=== PATIENT | male | born 1970 | race Hispanic/Latino ===

== ENCOUNTER 2019-05-23 10:34 | Emergency (ER) | payer SELFPAY | END 2019-05-23 11:22 | disposition home or self-care (01) | LOC: EDH 10:34 | DX: R50.9 Fever, unspecified (principal); I10 Essential (primary) hypertension; Z98.2 Presence of cerebrospinal fluid drainage device; Z87.891 Personal history of nicotine dependence | CPT/HCPCS: 99281 ==

== ENCOUNTER → 2020-11-16 | Outpatient (CLI) | payer MEDICARE | END | disposition home or self-care (01) | LOC: SHCH 14:00 | PROVIDERS: ATTEND Internal Medicine | DX: R06.02 Shortness of breath (principal) | CPT/HCPCS: 93306 ==

== ENCOUNTER 2021-12-27 12:38 | Inpatient (IN) | payer MEDICARE ==
[~2021-12-27] VITALS: Ht 165.1 cm; Wt 109.9 kg
[2021-12-27 15:16] LABS: ABG BASE EXCESS -5.2 mmol/L (-2.0-3.0); ABG OXYGEN SATURATION 89.5 % (95.0-99.0); ABG PCO2 30 mmHg (35-48)
[2021-12-27] MEDS ORDERED: DEXAMETHASONE SOD PHOSPHATE 4 MG/ML 1ML VIAL IVP ONE (15:30)
[2021-12-27] MEDS ORDERED: AZITHROMYCIN 250 MG TABLET PO ONE (15:30)
[2021-12-27] MEDS ORDERED: CEFTRIAXONE 1G VIAL IVP ONE (15:30)
[2021-12-27 15:38] LABS: BASOPHILS % (AUTO) 0.5 % (0.0-5.0); EOSINOPHILS % (AUTO) 0.4 % (0.0-8.0); HEMATOCRIT 51.4 % (42-54); MEAN CORPUSCULAR HEMOGLOBIN 30.9 pg (27.0-33.0); MEAN CORPUSCULAR HGB CONC 33.1 g/dL (32.0-36.0); MEAN CORPUSCULAR VOLUME 93.5 fL (79-99); MONOCYTES % (AUTO) 11.3 % (3.0-13.0); NEUTROPHILS % (AUTO) 75.2 % (40.0-77.0); NUCLEATED RED BLOOD CELLS 0.4 % (0.0-0.19); PLATELET COUNT (AUTO) 150 K/uL (130-400); RED CELL DISTRIBUTION WIDTH 13.6 % (11.0-15.5); WHITE BLOOD COUNT (AUTO) 7.4 K/uL (4.8-10.8)
[2021-12-27 15:51] LABS: CREATININE 0.8 mg/dL (0.5-1.5); POTASSIUM 3.8 mmol/L (3.5-5.1)
[2021-12-27 16:03] LABS: ALBUMIN 3.4 g/dL (3.5-5.0); BILIRUBIN,TOTAL 0.2 mg/dL (0.2-1.0); CRP QUANTITATIVE 27.8 mg/L (0.00-9.0); TOTAL PROTEIN, SERUM 8.5 g/dL (6.0-8.3)
[2021-12-27 16:47] LABS: ERYTHROCYTE SEDIMENTATION RATE 2 MM/HR (0-20)
[2021-12-27] MEDS ORDERED: LOSA25TA41 PO (16:51)
[2021-12-27] MEDS ORDERED: QUET50TA24 PO (16:51)
[2021-12-27] MEDS ORDERED: TRAZ-185 PO (16:51)
[2021-12-27] MEDS ORDERED: FURO20TA4 PO (16:51)
[2021-12-27] MEDS ORDERED: SENN8.6T20 PO (16:51)
[2021-12-27] MEDS ORDERED: DIVA-78 PO ×2 (16:51)
[2021-12-27] MEDS ORDERED: LEVE750T10 PO (16:51)
[2021-12-27] MEDS ORDERED: MULT-1192 PO (16:51)
[2021-12-27] MEDS ORDERED: 0.9%NACL 1000ML 1,000 ML IV SCH (17:30)
[2021-12-27] MEDS ORDERED: PHARMACY COMMUNICATION MISC SCH (18:00)
[2021-12-27] MEDS: DOXYCYCLINE 100MG+NS 250ML IV SCH (18:38)
[2021-12-27] MEDS ORDERED: IOHEXOL 350 MG/ML 100ML INFUS..BTL IV ONE (20:31)
[2021-12-27] MEDS ORDERED: QUETIAPINE FUMARATE 100 MG TAB ONE (21:03)
[2021-12-27] MEDS ORDERED: LEVETIRACETAM 500 MG TABLET PO ONE (21:04)
[2021-12-27] MEDS: QUETIAPINE FUMARATE 25 MG TAB PO SCH (21:13)
[2021-12-27] MEDS: SENNOSIDES 8.6 MG TABLET PO SCH (21:14)
[2021-12-27] MEDS: DIVALPROEX SODIUM 250 MG TABLET.DR PO SCH (21:14)
[2021-12-27] MEDS: LEVETIRACETAM 250 MG TABLET PO SCH (21:14)
[2021-12-27 21:22] LABS: CREATININE 0.7 mg/dL (0.5-1.5); POTASSIUM 4.4 mmol/L (3.5-5.1)
[2021-12-28] VITALS (7 sets, daily range): BP systolic 90–118; BP diastolic 60–93
[2021-12-28] MEDS: DOXYCYCLINE 100MG+NS 250ML IV SCH ×2 (05:17→18:41)
[2021-12-28 05:24] LABS: BASOPHILS % (AUTO) 0.1 % (0.0-5.0); HEMATOCRIT 44.7 % (42-54); LYMPHOCYTES % (AUTO) 18.6 % (21.0-51.0); MEAN CORPUSCULAR HEMOGLOBIN 31.2 pg (27.0-33.0); MEAN CORPUSCULAR HGB CONC 33.6 g/dL (32.0-36.0); MEAN CORPUSCULAR VOLUME 92.9 fL (79-99); MONOCYTES % (AUTO) 11.5 % (3.0-13.0); PLATELET COUNT (AUTO) 141 K/uL (130-400); RED BLOOD CELL COUNT(AUTO) 4.81 MIL/uL (4.50-6.20); RED CELL DISTRIBUTION WIDTH 13.5 % (11.0-15.5); WHITE BLOOD COUNT (AUTO) 6.7 K/uL (4.8-10.8)
[2021-12-28 06:05] LABS: ALBUMIN 2.7 g/dL (3.5-5.0); BILIRUBIN,DIRECT 0.1 mg/dL (0.0-0.3); BILIRUBIN,TOTAL 0.4 mg/dL (0.2-1.0); CREATININE 0.9 mg/dL (0.5-1.5); CRP QUANTITATIVE 25.6 mg/L (0.00-9.0); POTASSIUM 4.9 mmol/L (3.5-5.1); THYROID STIMULATING HORMONE 0.64 uIU/mL (0.36-3.74); TOTAL PROTEIN, SERUM 7.1 g/dL (6.0-8.3)
[2021-12-28 09:49] LABS: MYOGLOBIN 310 ng/mL (10-92)
[2021-12-28 09:51] LABS: CREATINE KINASE, TOTAL 2101 U/L (21-232)
[2021-12-28] MEDS: LEVETIRACETAM 250 MG TABLET PO SCH ×2 (10:41→20:25)
[2021-12-28] MEDS: DEXAMETHASONE SOD PHOSPHATE 4 MG/ML 1ML VIAL IV SCH (10:41)
[2021-12-28] MEDS: ENOXAPARIN SODIUM 40 MG/0.4 ML SYRINGE SQ SCH (10:41)
[2021-12-28] MEDS: MULTIVITAMIN TABLET PO SCH (10:41)
[2021-12-28] MEDS: CEFTRIAXONE 2GM VIAL IVP SCH (10:41)
[2021-12-28] MEDS: DIVALPROEX SODIUM 250 MG TABLET.DR PO SCH ×2 (10:41→20:25)
[2021-12-28] MEDS: SENNOSIDES 8.6 MG TABLET PO SCH ×2 (10:41→20:25)
[2021-12-28 14:25] LABS: MYOGLOBIN 245 ng/mL (10-92)
[2021-12-28 14:31] LABS: CREATINE KINASE, TOTAL 2166 U/L (21-232)
[2021-12-28] MEDS ORDERED: 0.9% NACL 250ML 250 ML ONE (18:40)
[2021-12-28 19:16] LABS: APPEARANCE,URINE Clear (CLEAR); BILIRUBIN,URINE Negative (NEGATIVE); COLOR,URINE Yellow (YELLOW); GLUCOSE, URINE (UA) Negative (NEGATIVE); KETONES,URINE Negative (NEGATIVE); LEUKOCYTE ESTERASE ,URINE Negative (NEGATIVE); NITRATE,URINE Negative (NEGATIVE); OCCULT BLOOD,URINE Negative (NEGATIVE); PROTEIN,URINE Negative (NEGATIVE); UROBILINOGEN,URINE 0.2 mg/dL (0.2-1.0)
[2021-12-28 19:20] LABS: CREATININE,URINE RANDOM 96 mg/dL (30-135); SODIUM,URINE RANDOM 16 mmol/l (40-220)
[2021-12-28] MEDS: QUETIAPINE FUMARATE 25 MG TAB PO SCH (20:25)
[2021-12-28 21:06] LABS: MYOGLOBIN 204 ng/mL (10-92)
[2021-12-28 21:10] LABS: CREATINE KINASE, TOTAL 2262 U/L (21-232)
[2021-12-29 04:29] VITALS: BP 99/73
[2021-12-29 04:44] LABS: BASOPHILS % (AUTO) 0.1 % (0.0-5.0); HEMATOCRIT 41.4 % (42-54); LYMPHOCYTES % (AUTO) 21.3 % (21.0-51.0); MEAN CORPUSCULAR HEMOGLOBIN 30.9 pg (27.0-33.0); MEAN CORPUSCULAR HGB CONC 33.1 g/dL (32.0-36.0); MEAN CORPUSCULAR VOLUME 93.2 fL (79-99); MONOCYTES % (AUTO) 11.1 % (3.0-13.0); PLATELET COUNT (AUTO) 133 K/uL (130-400); RED BLOOD CELL COUNT(AUTO) 4.44 MIL/uL (4.50-6.20); RED CELL DISTRIBUTION WIDTH 13.8 % (11.0-15.5); WHITE BLOOD COUNT (AUTO) 7.4 K/uL (4.8-10.8)
[2021-12-29 04:57] LABS: CREATININE 0.9 mg/dL (0.5-1.5); CRP QUANTITATIVE 6.6 mg/L (0.00-9.0); POTASSIUM 4.1 mmol/L (3.5-5.1)
[2021-12-29] MEDS: DOXYCYCLINE 100MG+NS 250ML IV SCH ×2 (05:45→17:38)
[2021-12-29] MEDS ORDERED: 0.9% NACL 250ML 250 ML ONE (05:54)
[2021-12-29 07:38] VITALS: BP 108/83
[2021-12-29] MEDS: DEXAMETHASONE SOD PHOSPHATE 4 MG/ML 1ML VIAL IV SCH (07:58)
[2021-12-29] MEDS: CEFTRIAXONE 2GM VIAL IVP SCH (07:58)
[2021-12-29] MEDS: PHARMACY COMMUNICATION MISC SCH ×2 (08:03→21:00)
[2021-12-29] MEDS: MULTIVITAMIN TABLET PO SCH (08:06)
[2021-12-29] MEDS: SENNOSIDES 8.6 MG TABLET PO SCH ×2 (08:06→20:48)
[2021-12-29 12:00] VITALS: BP 115/84
[2021-12-29] MEDS: ENOXAPARIN SODIUM 40 MG/0.4 ML SYRINGE SQ SCH (12:05)
[2021-12-29] MEDS: LEVETIRACETAM 250 MG TABLET PO SCH ×2 (12:05→20:48)
[2021-12-29] MEDS: DIVALPROEX SODIUM 250 MG TABLET.DR PO SCH ×2 (12:05→20:48)
[2021-12-29 16:00] VITALS: BP 114/76
[2021-12-29] MEDS: LACTATED RINGERS 1000ML 1,000 ML IV SCH (18:29)
[2021-12-29 19:00] VITALS: BP 119/76
[2021-12-29] MEDS: QUETIAPINE FUMARATE 25 MG TAB PO SCH (20:48)
[2021-12-30] MEDS: LACTATED RINGERS 1000ML 1,000 ML IV SCH (01:00)
[2021-12-30 04:00] VITALS: BP 128/88
[2021-12-30 04:12] LABS: BASOPHILS % (AUTO) 0.1 % (0.0-5.0); HEMATOCRIT 41.8 % (42-54); LYMPHOCYTES % (AUTO) 20.8 % (21.0-51.0); MEAN CORPUSCULAR HEMOGLOBIN 31.5 pg (27.0-33.0); MEAN CORPUSCULAR HGB CONC 33.5 g/dL (32.0-36.0); MEAN CORPUSCULAR VOLUME 94.1 fL (79-99); MONOCYTES % (AUTO) 10.4 % (3.0-13.0); NEUTROPHILS % (AUTO) 68.3 % (40.0-77.0); PLATELET COUNT (AUTO) 141 K/uL (130-400); RED BLOOD CELL COUNT(AUTO) 4.44 MIL/uL (4.50-6.20); RED CELL DISTRIBUTION WIDTH 13.9 % (11.0-15.5); WHITE BLOOD COUNT (AUTO) 6.8 K/uL (4.8-10.8)
[2021-12-30 04:42] LABS: CREATININE 0.7 mg/dL (0.5-1.5); POTASSIUM 3.6 mmol/L (3.5-5.1)
[2021-12-30] MEDS ORDERED: 0.9% NACL 250ML 250 ML ONE (06:01)
[2021-12-30] MEDS: DOXYCYCLINE 100MG+NS 250ML IV SCH (06:27)
[2021-12-30] MEDS ORDERED: CEFU500T67 PO (07:14)
[2021-12-30] MEDS ORDERED: DEXA6TAB PO (07:14)
[2021-12-30] MEDS ORDERED: FUROSEMIDE 20MG VIAL IV SCH (07:30)
[2021-12-30 08:00] VITALS: BP 134/86
[2021-12-30] MEDS: ENOXAPARIN SODIUM 40 MG/0.4 ML SYRINGE SQ SCH (08:25)
[2021-12-30] MEDS: SENNOSIDES 8.6 MG TABLET PO SCH (08:26)
[2021-12-30] MEDS: MULTIVITAMIN TABLET PO SCH (08:26)
[2021-12-30] MEDS: LEVETIRACETAM 250 MG TABLET PO SCH (09:32)
[2021-12-30] MEDS: DIVALPROEX SODIUM 250 MG TABLET.DR PO SCH (09:32)
[2021-12-30 11:56] VITALS: BP 135/85
[2021-12-30 16:34] VITALS: BP 140/91
[2021-12-30] MEDS ORDERED: METO-391 PO (16:46)
[2021-12-30] MEDS ORDERED: FURO40TA5 PO (16:46)
[2021-12-30] MEDS ORDERED: METOPROLOL TARTRATE 25 MG TAB PO ONE (17:00)
[2021-12-30] MEDS ORDERED: FUROSEMIDE 20MG VIAL IV ONE (17:00)
[2021-12-30] MEDS ORDERED: FUROSEMIDE 40 MG TABLET PO ONE (18:25)
== END 2021-12-30 16:30 | disposition home or self-care (01) | DRG 177 ==
LOC: EDH 12:38 → EDHIP 17:33 → 2AH 23:47
PROVIDERS: ADMIT Internal Medicine; ATTEND Internal Medicine
DX: U07.1 COVID-19 (principal); J12.82 Pneumonia due to coronavirus disease 2019; J96.01 Acute respiratory failure with hypoxia; E87.1 Hypo-osmolality and hyponatremia; G82.20 Paraplegia, unspecified; M62.82 Rhabdomyolysis; Z68.41 Body mass index [BMI] 40.0-44.9, adult; D68.69 Other thrombophilia; E66.9 Obesity, unspecified; E86.0 Dehydration; G40.909 Epilepsy, unspecified, not intractable, without status epilepticus; I10 Essential (primary) hypertension; K59.00 Constipation, unspecified; K75.9 Inflammatory liver disease, unspecified; K76.0 Fatty (change of) liver, not elsewhere classified; Z79.899 Other long term (current) drug therapy; Z86.73 Personal history of transient ischemic attack (TIA), and cerebral infarction without residual deficits; K80.20 Calculus of gallbladder without cholecystitis without obstruction
CPT/HCPCS: 36415; 36600; 70450; 71045; 71275; 74181; 76705; 80048; 80053; 80076; 80164; 81003; 82010; 82435; 82533; 82550; 82570; 82728; 82803; 82947; 82948; 83605; 83615; 83874; 84132; 84145; 84295; 84300; 84443; 84484; 85018; 85025; 85378; 85651; 86140; 87040; 87635; 87804; 93005; 93970; 94760; 97039; 99291; C9803; G0378; J0696; J1100; J1650; J1940; J3490; J7050; J7120; Q9967

== ENCOUNTER 2022-01-10 15:06 | Inpatient (IN) | payer MEDICARE ==
[~2022-01-10] VITALS: Ht 170.2 cm; Wt 105.6 kg
[~2022-01-10 15:06] MED LIST: CEFU500T67 PO; DEXA6TAB PO; DIVA-78 PO; FURO40TA5 PO; LEVE750T10 PO; METO-391 PO; MULT-1192 PO; QUET50TA24 PO; SENN8.6T20 PO
[2022-01-10] MEDS ORDERED: 0.9%NACL 1000ML 1,000 ML IV ONE (16:00)
[2022-01-10 16:29] LABS: BASOPHILS % (AUTO) 0.3 % (0.0-5.0); EOSINOPHILS % (AUTO) 0.4 % (0.0-8.0); HEMATOCRIT 43.5 % (42-54); LYMPHOCYTES % (AUTO) 11.4 % (21.0-51.0); MEAN CORPUSCULAR HEMOGLOBIN 30.3 pg (27.0-33.0); MEAN CORPUSCULAR HGB CONC 32.4 g/dL (32.0-36.0); MEAN CORPUSCULAR VOLUME 93.3 fL (79-99); MONOCYTES % (AUTO) 6.3 % (3.0-13.0); NEUTROPHILS % (AUTO) 80.9 % (40.0-77.0); PLATELET COUNT (AUTO) 261 K/uL (130-400); RED BLOOD CELL COUNT(AUTO) 4.66 MIL/uL (4.50-6.20); RED CELL DISTRIBUTION WIDTH 13.1 % (11.0-15.5); WHITE BLOOD COUNT (AUTO) 6.8 K/uL (4.8-10.8)
[2022-01-10 16:42] LABS: PROTHROMBIN TIME 10.9 SEC (9.6-11.6)
[2022-01-10 16:43] LABS: PARTIAL THROMBOPLASTIN TIME 26.7 SEC (26.3-35.5)
[2022-01-10 16:59] LABS: ALBUMIN 2.5 g/dL (3.5-5.0); BILIRUBIN,TOTAL 0.2 mg/dL (0.2-1.0); CREATININE 0.7 mg/dL (0.5-1.5); POTASSIUM 3.6 mmol/L (3.5-5.1); TOTAL PROTEIN, SERUM 7.5 g/dL (6.0-8.3)
[2022-01-10] MEDS ORDERED: IOHEXOL 350 MG/ML 100ML INFUS..BTL IV ONE (17:14)
[2022-01-10] MEDS ORDERED: ENOXAPARIN SODIUM 120 MG/0.8ML SQ ONE (19:00)
[2022-01-10] MEDS ORDERED: ENOXAPARIN SODIUM 100 MG/1 ML SQ ONE (19:00)
[2022-01-10] MEDS ORDERED: ONDANSETRON 4MG INJ IV PRN (20:30)
[2022-01-10] MEDS ORDERED: 0.9%NACL 1000ML 1,000 ML IV SCH (20:30)
[2022-01-10] MEDS: ENOXAPARIN SODIUM 100 MG/1 ML SQ SCH (20:33)
[2022-01-10] MEDS: FAMOTIDINE 20MG VIAL IV SCH (21:05)
[2022-01-11 06:14] LABS: BASOPHILS % (AUTO) 0.6 % (0.0-5.0); EOSINOPHILS % (AUTO) 1.7 % (0.0-8.0); HEMATOCRIT 36.6 % (42-54); MEAN CORPUSCULAR HEMOGLOBIN 31.4 pg (27.0-33.0); MEAN CORPUSCULAR VOLUME 98.1 fL (79-99); MONOCYTES % (AUTO) 8.6 % (3.0-13.0); NEUTROPHILS % (AUTO) 61.2 % (40.0-77.0); PLATELET COUNT (AUTO) 155 K/uL (130-400); RED BLOOD CELL COUNT(AUTO) 3.73 MIL/uL (4.50-6.20); RED CELL DISTRIBUTION WIDTH 13.4 % (11.0-15.5); WHITE BLOOD COUNT (AUTO) 4.8 K/uL (4.8-10.8)
[2022-01-11 06:23] LABS: INR 1.05 (0.85-1.15); PROTHROMBIN TIME 11.4 SEC (9.6-11.6)
[2022-01-11 06:25] LABS: PARTIAL THROMBOPLASTIN TIME 24.5 SEC (26.3-35.5)
[2022-01-11 06:36] LABS: CREATININE 0.5 mg/dL (0.5-1.5); MAGNESIUM 1.8 mg/dL (1.80-2.40); PHOSPHORUS 2.9 mg/dL (2.5-4.9); POTASSIUM 3.8 mmol/L (3.5-5.1)
[2022-01-11] MEDS: FAMOTIDINE 20MG VIAL IV SCH ×2 (08:53→20:40)
[2022-01-11] MEDS: ENOXAPARIN SODIUM 100 MG/1 ML SQ SCH ×2 (08:53→20:40)
[2022-01-11] MEDS: DEXAMETHASONE SOD PHOSPHATE 4 MG/ML 1ML VIAL IV SCH (10:48)
[2022-01-11] MEDS: LEVETIRACETAM 250 MG TABLET PO SCH ×2 (10:49→21:18)
[2022-01-11] MEDS: MULTIVITAMIN TABLET PO SCH (10:49)
[2022-01-11] MEDS: METOPROLOL TARTRATE 25 MG TAB PO SCH ×2 (10:49→20:40)
[2022-01-11 11:09] LABS: ABG BASE EXCESS 1.3 mmol/L (-2.0-3.0); ABG HCO3 26.1 mmol/L (21.0-28.0); ABG OXYGEN SATURATION 95.6 % (95.0-99.0); ABG PCO2 42 mmHg (35-48)
[2022-01-11 11:43] VITALS: BP 127/86
[2022-01-11 16:10] VITALS: BP 100/57
[2022-01-11 19:41] VITALS: BP 132/88
[2022-01-11] MEDS: SENNOSIDES 8.6 MG TABLET PO SCH (20:40)
[2022-01-11] MEDS: QUETIAPINE FUMARATE 25 MG TAB PO SCH (20:57)
[2022-01-11] MEDS ORDERED: NON-FORMULARY MEDICATION 1 EACH (Quetiapine Fumarate 50 MG) PO SCH (21:00)
[2022-01-11] MEDS: DIVALPROEX SODIUM 250 MG TABLET.DR PO SCH (21:19)
[2022-01-12 00:41] VITALS: BP 118/79
[2022-01-12 04:00] VITALS: BP 114/63
[2022-01-12 06:23] LABS: BASOPHILS % (AUTO) 0.5 % (0.0-5.0); EOSINOPHILS % (AUTO) 0.7 % (0.0-8.0); HEMATOCRIT 35.1 % (42-54); LYMPHOCYTES % (AUTO) 31.3 % (21.0-51.0); MEAN CORPUSCULAR HEMOGLOBIN 31.1 pg (27.0-33.0); MEAN CORPUSCULAR HGB CONC 32.8 g/dL (32.0-36.0); MEAN CORPUSCULAR VOLUME 94.9 fL (79-99); MONOCYTES % (AUTO) 8.4 % (3.0-13.0); PLATELET COUNT (AUTO) 251 K/uL (130-400); RED CELL DISTRIBUTION WIDTH 13.2 % (11.0-15.5); WHITE BLOOD COUNT (AUTO) 5.7 K/uL (4.8-10.8)
[2022-01-12 06:42] LABS: ALBUMIN 2.1 g/dL (3.5-5.0); BILIRUBIN,TOTAL 0.2 mg/dL (0.2-1.0); CREATININE 0.6 mg/dL (0.5-1.5); CRP QUANTITATIVE 22.4 mg/L (0.00-9.0); POTASSIUM 3.8 mmol/L (3.5-5.1); TOTAL PROTEIN, SERUM 6.3 g/dL (6.0-8.3)
[2022-01-12 07:00] VITALS: BP 123/84
[2022-01-12] MEDS: SENNOSIDES 8.6 MG TABLET PO SCH ×2 (08:12→21:01)
[2022-01-12] MEDS: METOPROLOL TARTRATE 25 MG TAB PO SCH ×2 (08:12→21:02)
[2022-01-12] MEDS: APIXABAN 5 MG TABLET PO SCH ×2 (08:13→21:03)
[2022-01-12] MEDS: FAMOTIDINE 20MG VIAL IV SCH ×2 (08:13→21:02)
[2022-01-12] MEDS: LEVETIRACETAM 250 MG TABLET PO SCH ×2 (08:13→21:02)
[2022-01-12] MEDS: MULTIVITAMIN TABLET PO SCH (08:43)
[2022-01-12] MEDS: DEXAMETHASONE SOD PHOSPHATE 4 MG/ML 1ML VIAL IV SCH (08:44)
[2022-01-12 11:30] VITALS: BP 112/72
[2022-01-12] MEDS ORDERED: ACETAMINOPHEN 325 MG TAB PO PRN (14:00)
[2022-01-12 15:10] VITALS: BP 128/85
[2022-01-12 20:23] VITALS: BP 126/73
[2022-01-12] MEDS: DIVALPROEX SODIUM 250 MG TABLET.DR PO SCH (21:01)
[2022-01-12] MEDS: QUETIAPINE FUMARATE 25 MG TAB PO SCH (21:01)
[2022-01-13] VITALS: BP 138/84
[2022-01-13 03:58] VITALS: BP 150/73
[2022-01-13 04:41] LABS: BASOPHILS % (AUTO) 0.3 % (0.0-5.0); EOSINOPHILS % (AUTO) 0.3 % (0.0-8.0); HEMATOCRIT 34.1 % (42-54); LYMPHOCYTES % (AUTO) 32.8 % (21.0-51.0); MEAN CORPUSCULAR HEMOGLOBIN 30.4 pg (27.0-33.0); MEAN CORPUSCULAR HGB CONC 32.8 g/dL (32.0-36.0); MEAN CORPUSCULAR VOLUME 92.4 fL (79-99); MONOCYTES % (AUTO) 7.9 % (3.0-13.0); NEUTROPHILS % (AUTO) 56.3 % (40.0-77.0); PLATELET COUNT (AUTO) 276 K/uL (130-400); RED BLOOD CELL COUNT(AUTO) 3.69 MIL/uL (4.50-6.20); WHITE BLOOD COUNT (AUTO) 7.2 K/uL (4.8-10.8)
[2022-01-13 04:59] LABS: ALBUMIN 2.1 g/dL (3.5-5.0); BILIRUBIN,TOTAL 0.2 mg/dL (0.2-1.0); CREATININE 0.6 mg/dL (0.5-1.5); POTASSIUM 3.6 mmol/L (3.5-5.1); TOTAL PROTEIN, SERUM 6.1 g/dL (6.0-8.3)
[2022-01-13 07:00] VITALS: BP 126/55
[2022-01-13] MEDS: MULTIVITAMIN TABLET PO SCH (08:35)
[2022-01-13] MEDS: FAMOTIDINE 20MG VIAL IV SCH (08:35)
[2022-01-13] MEDS: LEVETIRACETAM 250 MG TABLET PO SCH (08:35)
[2022-01-13] MEDS: DEXAMETHASONE SOD PHOSPHATE 4 MG/ML 1ML VIAL IV SCH (08:35)
[2022-01-13] MEDS: APIXABAN 5 MG TABLET PO SCH (08:35)
[2022-01-13] MEDS: METOPROLOL TARTRATE 25 MG TAB PO SCH (08:36)
[2022-01-13] MEDS: SENNOSIDES 8.6 MG TABLET PO SCH (08:36)
[2022-01-13] MEDS ORDERED: METO-391 PO (10:03)
[2022-01-13] MEDS ORDERED: APIX5TAB PO (10:03)
[2022-01-13] MEDS ORDERED: DEXA6TAB PO (10:03)
[2022-01-13 11:00] VITALS: BP 120/66
[2022-01-13] MEDS ORDERED: METOPROLOL TARTRATE 25 MG TAB PO SCH (21:00)
== END 2022-01-13 12:45 | disposition home or self-care (01) | DRG 177 ==
LOC: EDH 15:06 → EDHIP 20:05 → 2AH 01-11 11:27
PROVIDERS: ADMIT Hospitalist; ATTEND Hospitalist
DX: U07.1 COVID-19 (principal); I26.99 Other pulmonary embolism without acute cor pulmonale; R53.2 Functional quadriplegia; J96.01 Acute respiratory failure with hypoxia; J12.82 Pneumonia due to coronavirus disease 2019; D68.59 Other primary thrombophilia; I10 Essential (primary) hypertension; Z87.820 Personal history of traumatic brain injury; Z79.01 Long term (current) use of anticoagulants; Z98.2 Presence of cerebrospinal fluid drainage device
CPT/HCPCS: 36415; 36600; 71045; 71275; 80048; 80053; 82550; 82803; 83605; 83735; 84100; 84145; 84484; 85025; 85378; 85610; 85651; 85730; 86140; 87040; 87088; 87635; 87804; 92610; 93005; 99291; G0378; J1100; J1650; J3490; J7030; Q9967

== ENCOUNTER 2022-05-25 14:25 | Emergency (ER) | payer MEDICARE ==
[~2022-05-25] VITALS: Ht 167.6 cm; Wt 104.3 kg
[~2022-05-25 14:25] MED LIST changes: +APIX5TAB PO; -CEFU500T67 PO; -METO-391 PO
[2022-05-25 14:58] LABS: BASOPHILS % (AUTO) 0.4 % (0.0-5.0); EOSINOPHILS % (AUTO) 0.3 % (0.0-8.0); HEMATOCRIT 48.9 % (42-54); LYMPHOCYTES % (AUTO) 17.8 % (21.0-51.0); MEAN CORPUSCULAR HGB CONC 33.1 g/dL (32.0-36.0); MEAN CORPUSCULAR VOLUME 90.6 fL (79-99); MONOCYTES % (AUTO) 8.3 % (3.0-13.0); NEUTROPHILS % (AUTO) 72.7 % (40.0-77.0); PLATELET COUNT (AUTO) 234 K/uL (130-400); RED CELL DISTRIBUTION WIDTH 13.4 % (11.0-15.5); WHITE BLOOD COUNT (AUTO) 9.5 K/uL (4.8-10.8)
[2022-05-25 15:13] LABS: CREATININE 0.9 mg/dL (0.5-1.5); POTASSIUM 3.8 mmol/L (3.5-5.1)
[2022-05-25 15:18] LABS: ALBUMIN 3.3 g/dL (3.5-5.0); BILIRUBIN,TOTAL 0.2 mg/dL (0.2-1.0); TOTAL PROTEIN, SERUM 7.9 g/dL (6.0-8.3)
[2022-05-25] MEDS ORDERED: DIATR MEGLU/DIATRIZOATE SODIUM 30 ML BOTTLE ONE (15:18)
[2022-05-25 17:51] VITALS: BP 133/97
[2022-05-25] MEDS ORDERED: IOHEXOL 350 MG/ML 100ML INFUS..BTL IV ONE (18:20)
[2022-05-25] MEDS ORDERED: FUROSEMIDE 40MG VIAL IV ONE (20:30)
[2022-05-25] MEDS ORDERED: FURO40TA7 PO (22:08)
== END 2022-05-25 22:44 | disposition home or self-care (01) ==
LOC: EDH 14:25
DX: R60.0 Localized edema (principal); I10 Essential (primary) hypertension; Z79.01 Long term (current) use of anticoagulants; Z79.52 Long term (current) use of systemic steroids; Z79.899 Other long term (current) drug therapy
CPT/HCPCS: 36415; 71045; 74177; 80053; 82550; 83880; 84484; 85025; 93005; 93970; 96374; 99285; J1940; Q9963; Q9967

== ENCOUNTER 2022-06-06 15:05 | Emergency (ER) | payer MEDICARE ==
[~2022-06-06] VITALS: Ht 167.6 cm; Wt 104.3 kg
[~2022-06-06 15:05] MED LIST changes: +FURO40TA7 PO
[2022-06-06 15:46] LABS: APPEARANCE,URINE CLEAR (CLEAR); BILIRUBIN,URINE NEGATIVE (NEGATIVE); COLOR,URINE YELLOW (YELLOW); GLUCOSE, URINE (UA) NEGATIVE (NEGATIVE); KETONES,URINE NEGATIVE (NEGATIVE); LEUKOCYTE ESTERASE ,URINE NEGATIVE (NEGATIVE); NITRATE,URINE NEGATIVE (NEGATIVE); OCCULT BLOOD,URINE NEGATIVE (NEGATIVE); PH,URINE 7.5 (5.0-8.0); PROTEIN,URINE NEGATIVE (NEGATIVE)
[2022-06-06 15:55] LABS: BASOPHILS % (AUTO) 0.3 % (0.0-5.0); EOSINOPHILS % (AUTO) 1.1 % (0.0-8.0); HEMATOCRIT 48.4 % (42-54); MEAN CORPUSCULAR HEMOGLOBIN 30.4 pg (27.0-33.0); MEAN CORPUSCULAR HGB CONC 33.7 g/dL (32.0-36.0); MEAN CORPUSCULAR VOLUME 90.3 fL (79-99); MONOCYTES % (AUTO) 9.1 % (3.0-13.0); NEUTROPHILS % (AUTO) 68.9 % (40.0-77.0); PLATELET COUNT (AUTO) 195 K/uL (130-400); RED BLOOD CELL COUNT(AUTO) 5.36 MIL/uL (4.50-6.20); RED CELL DISTRIBUTION WIDTH 13.4 % (11.0-15.5); WHITE BLOOD COUNT (AUTO) 8.8 K/uL (4.8-10.8)
[2022-06-06] MEDS ORDERED: FUROSEMIDE 40MG VIAL IV ONE (16:00)
[2022-06-06] MEDS ORDERED: ASPIRIN 325MG EC TAB PO ONE (16:00)
[2022-06-06 16:11] LABS: CREATININE 0.9 mg/dL (0.5-1.5); POTASSIUM 3.6 mmol/L (3.5-5.1)
[2022-06-06 16:20] LABS: ALBUMIN 3.2 g/dL (3.5-5.0); TOTAL PROTEIN, SERUM 7.8 g/dL (6.0-8.3)
[2022-06-06 16:27] LABS: B-TYPE NATRIURETIC PEPTIDE 12 pg/mL (0-100)
[2022-06-06 17:25] LABS: THYROID STIMULATING HORMONE 4.88 uIU/mL (0.36-3.74)
[2022-06-06 20:26] VITALS: BP 120/70
== END 2022-06-06 20:51 | disposition home or self-care (01) ==
LOC: EDH 15:05
DX: R60.0 Localized edema (principal); R06.02 Shortness of breath; T42.75XA Adverse effect of unspecified antiepileptic and sedative-hypnotic drugs, initial encounter; Z20.822 Contact with and (suspected) exposure to COVID-19; I10 Essential (primary) hypertension; Z79.899 Other long term (current) drug therapy; Z86.73 Personal history of transient ischemic attack (TIA), and cerebral infarction without residual deficits; Z98.890 Other specified postprocedural states; Y92.89 Other specified places as the place of occurrence of the external cause
CPT/HCPCS: 99285; 96374; 71045; 87635; 80164; 84443; 84484; 80053; 83880; 85025; 85378; 87040 ×2; 81003; 36415; 93005; C9803; J1940

== ENCOUNTER → 2022-07-12 | Outpatient (CLI) | payer MEDICARE | END | disposition home or self-care (01) | LOC: SHCH 07:58 | PROVIDERS: ATTEND Internal Medicine | DX: I11.9 Hypertensive heart disease without heart failure (principal); I69.354 Hemiplegia and hemiparesis following cerebral infarction affecting left non-dominant side | CPT/HCPCS: 93306 ==

== ENCOUNTER 2022-09-03 11:49 | Emergency (ER) | payer MEDICARE ==
[~2022-09-03] VITALS: Ht 167.6 cm; Wt 108.9 kg
[2022-09-03] MEDS ORDERED: IPRATROPIUM/ALBUTEROL SULFATE 3 ML SOLUTION IH ONE (12:30)
[2022-09-03] MEDS ORDERED: ALBUTEROL 0.083% 2.5 MG/3 ML INH IH ONE (12:30)
[2022-09-03] MEDS ORDERED: BUDESONIDE 0.5 MG/2 ML INH IH SCH (12:30)
[2022-09-03 12:33] LABS: BASOPHILS % (AUTO) 0.2 % (0.0-5.0); EOSINOPHILS % (AUTO) 0.6 % (0.0-8.0); HEMATOCRIT 43.8 % (42-54); LYMPHOCYTES % (AUTO) 9.1 % (21.0-51.0); MEAN CORPUSCULAR HEMOGLOBIN 30.6 pg (27.0-33.0); MEAN CORPUSCULAR HGB CONC 33.1 g/dL (32.0-36.0); MEAN CORPUSCULAR VOLUME 92.4 fL (79-99); NEUTROPHILS % (AUTO) 85.8 % (40.0-77.0); PLATELET COUNT (AUTO) 209 K/uL (130-400); RED BLOOD CELL COUNT(AUTO) 4.74 MIL/uL (4.50-6.20); RED CELL DISTRIBUTION WIDTH 13.5 % (11.0-15.5); WHITE BLOOD COUNT (AUTO) 11.7 K/uL (4.8-10.8)
[2022-09-03 12:45] LABS: ALBUMIN 3.2 g/dL (3.5-5.0); TOTAL PROTEIN, SERUM 7.6 g/dL (6.0-8.3)
[2022-09-03] MEDS ORDERED: 0.9%NACL 1000ML 1,000 ML IV SCH (13:00)
[2022-09-03] MEDS ORDERED: OSELTAMIVIR PHOSPHATE 75 MG CAP PO SCH (13:00)
[2022-09-03] MEDS ORDERED: AZITHROMYCIN 250 MG TABLET PO ONE (13:00)
[2022-09-03] MEDS ORDERED: CEFTRIAXONE 1G VIAL IVP ONE (13:00)
[2022-09-03] MEDS ORDERED: ACETAMINOPHEN 500 MG TABLET PO ONE ×2 (13:30→14:00)
[2022-09-03] MEDS ORDERED: ACETAMINOPHEN 500 MG TABLET ONE (13:34)
[2022-09-03] MEDS ORDERED: OSEL75 PO (13:47)
[2022-09-03] MEDS ORDERED: D-ME1POW16 PO (13:47)
[2022-09-03] MEDS ORDERED: LABETALOL 20MG SYG IV ONE (14:45)
[2022-09-03] MEDS ORDERED: LABETALOL 20MG VIAL IV ONE (15:00)
[2022-09-03 15:19] VITALS: BP 124/80
[2022-09-03] MEDS ORDERED: GUAIFENESIN-CODEINE 5 ML SYRUP PO ONE (15:30)
[2022-09-03] MEDS ORDERED: GUAIFENESIN-CODEINE 5 ML SYRUP ONE (15:37)
== END 2022-09-03 16:00 | disposition home or self-care (01) ==
LOC: EDH 11:49
DX: J10.1 Influenza due to other identified influenza virus with other respiratory manifestations (principal); E86.0 Dehydration; Z20.822 Contact with and (suspected) exposure to COVID-19; E11.9 Type 2 diabetes mellitus without complications; E78.00 Pure hypercholesterolemia, unspecified; I10 Essential (primary) hypertension; E66.01 Morbid (severe) obesity due to excess calories; Z79.01 Long term (current) use of anticoagulants; Z79.52 Long term (current) use of systemic steroids; Z83.3 Family history of diabetes mellitus; Z86.711 Personal history of pulmonary embolism; Z68.38 Body mass index [BMI] 38.0-38.9, adult
CPT/HCPCS: 99285; 71045; 96374; 87635; 96361; 96375; 84484; 80053; 83880; 85025; 87040 ×2; 87804 ×2; 83605; 36415; 93005; 94640 ×3; C9803; J0696

== ENCOUNTER 2022-11-28 15:54 | Emergency (ER) | payer MEDICARE ==
[~2022-11-28] VITALS: Ht 170.2 cm; Wt 104.3 kg
[~2022-11-28 15:54] MED LIST changes: -DEXA6TAB PO; -FURO40TA5 PO; -FURO40TA7 PO; -LEVE750T10 PO; +LEVE750T66 PO; +LEVO-70 PO; +LEVO50TA11 PO; +METO-408 PO; -MULT-1192 PO; +MULT-1367 PO; +QUET200T30 PO; -QUET50TA24 PO; +TOPI50TA24 PO
[2022-11-28] MEDS ORDERED: LACTATED RINGERS 1000ML 1,000 ML IV ONE (17:00)
[2022-11-28 17:06] LABS: BASOPHILS % (AUTO) 0.5 % (0.0-5.0); EOSINOPHILS % (AUTO) 3.2 % (0.0-8.0); HEMATOCRIT 47.2 % (42-54); LYMPHOCYTES % (AUTO) 23.1 % (21.0-51.0); MEAN CORPUSCULAR HGB CONC 33.1 g/dL (32.0-36.0); MEAN CORPUSCULAR VOLUME 90.8 fL (79-99); MONOCYTES % (AUTO) 8.3 % (3.0-13.0); NEUTROPHILS % (AUTO) 64.4 % (40.0-77.0); PLATELET COUNT (AUTO) 192 K/uL (130-400); RED CELL DISTRIBUTION WIDTH 13.5 % (11.0-15.5); WHITE BLOOD COUNT (AUTO) 8.5 K/uL (4.8-10.8)
[2022-11-28 17:16] LABS: POTASSIUM 3.5 mmol/L (3.5-5.1)
[2022-11-28 17:20] LABS: ALBUMIN 3.4 g/dL (3.5-5.0)
[2022-11-28 19:12] LABS: APPEARANCE,URINE CLEAR (CLEAR); BILIRUBIN,URINE NEGATIVE (NEGATIVE); COLOR,URINE LIGHT-YELLOW (YELLOW); GLUCOSE, URINE (UA) NEGATIVE (NEGATIVE); KETONES,URINE NEGATIVE (NEGATIVE); LEUKOCYTE ESTERASE ,URINE NEGATIVE Leu/uL (NEGATIVE); NITRATE,URINE NEGATIVE (NEGATIVE); OCCULT BLOOD,URINE NEGATIVE (NEGATIVE); PROTEIN,URINE NEGATIVE (NEGATIVE); UROBILINOGEN,URINE 0.2 mg/dL (0.2-1.0)
[2022-11-28 19:16] LABS: BACTERIA,URINE RARE /HPF (None Seen); HYALINE CASTS, URINE 0-1 /LPF (0-1 /LPF); MUCUS,URINE RARE LPF (None Seen)
[2022-11-28 19:38] VITALS: BP 122/81
== END 2022-11-28 20:04 | disposition home or self-care (01) ==
LOC: EDH 15:54
DX: K40.90 Unilateral inguinal hernia, without obstruction or gangrene, not specified as recurrent (principal); I10 Essential (primary) hypertension; E86.0 Dehydration; E66.01 Morbid (severe) obesity due to excess calories; Z68.36 Body mass index [BMI] 36.0-36.9, adult; Z98.890 Other specified postprocedural states
CPT/HCPCS: 99284; 82150; 82550; 80053; 83690; 85025; 82270; 81001; 36415; 74176; 96360; J7120

== ENCOUNTER → 2022-12-05 | Outpatient (CLI) | payer MEDICARE ==
[~2022-12-05] MED LIST changes: +IOHEXOL 350 MG/ML 100ML INFUS..BTL IV ONE; +METOPROLOL TARTRATE 1 MG/ML 5ML VIAL IV ONE
== END | disposition home or self-care (01) ==
LOC: RAH 08:31
PROVIDERS: ATTEND Internal Medicine Cardiovascular Disease
DX: R07.9 Chest pain, unspecified (principal); R06.02 Shortness of breath
CPT/HCPCS: 75574; J3490; Q9967

== ENCOUNTER → 2023-02-02 | Outpatient (CLI) | payer MEDICARE ==
[~2023-02-02] MED LIST changes: -METOPROLOL TARTRATE 1 MG/ML 5ML VIAL IV ONE; +TOPI-255 PO; -TOPI50TA24 PO
== END | disposition home or self-care (01) ==
LOC: RAH 09:46
PROVIDERS: ATTEND Internal Medicine Gastroenterology
DX: K40.90 Unilateral inguinal hernia, without obstruction or gangrene, not specified as recurrent (principal)
CPT/HCPCS: 74178; Q9967

== ENCOUNTER 2023-03-26 06:48 | Observation (INO) | payer MEDICARE ==
[2023-03-22 10:31] LABS: BASOPHILS % (AUTO) 0.4 % (0.0-5.0); EOSINOPHILS % (AUTO) 3.4 % (0.0-8.0); HEMATOCRIT 48.7 % (42-54); LYMPHOCYTES % (AUTO) 35.1 % (21.0-51.0); MEAN CORPUSCULAR HEMOGLOBIN 30.4 pg (27.0-33.0); MEAN CORPUSCULAR HGB CONC 33.1 g/dL (32.0-36.0); MEAN CORPUSCULAR VOLUME 91.9 fL (79-99); MONOCYTES % (AUTO) 8.1 % (3.0-13.0); NEUTROPHILS % (AUTO) 52.6 % (40.0-77.0); PLATELET COUNT (AUTO) 196 K/uL (130-400); RED CELL DISTRIBUTION WIDTH 14.1 % (11.0-15.5); WHITE BLOOD COUNT (AUTO) 5.6 K/uL (4.8-10.8)
[2023-03-22 10:48] VITALS: BP 142/98
[2023-03-22 12:08] LABS: INR 0.93 (0.85-1.15); PROTHROMBIN TIME 10.2 SEC (9.6-11.6)
[2023-03-22 12:09] LABS: PARTIAL THROMBOPLASTIN TIME 30.9 SEC (26.3-35.5)
[2023-03-26] VITALS (24 sets, daily range): BP systolic 109–141; BP diastolic 66–90
[~2023-03-26] VITALS: Ht 170.2 cm; Wt 115.4 kg
[~2023-03-26 06:48] MED LIST changes: -APIX5TAB PO; -IOHEXOL 350 MG/ML 100ML INFUS..BTL IV ONE; -LEVO-70 PO; -LEVO50TA11 PO; -MULT-1367 PO; +OMEP40CA21 PO; +QUET50TA24 PO; -TOPI-255 PO
[2023-03-26] MEDS ORDERED: LEVE750T35 PO (07:23)
[2023-03-26] MEDS ORDERED: 0.9%NACL 1000ML 1,000 ML IV ONE (07:40)
[2023-03-26] MEDS ORDERED: CEFAZOLIN SODIUM 2 GM VIAL ONE (07:41)
[2023-03-26] MEDS ORDERED: BUPIVACAINE/PF 0.25% 30ML VIAL IJ ONE (08:16)
[2023-03-26] MEDS ORDERED: ROCURONIUM 10MG/1ML SYR 10 MG/ML ML ONE ×2 (09:03→11:01)
[2023-03-26] MEDS ORDERED: GLYCOPYRROLATE 1 MG/5 ML SYRINGE ONE (09:03)
[2023-03-26] MEDS ORDERED: FENTANYL CITRATE PF 50 MCG/1 ML 2ML VIAL ONE ×2 (09:03→10:20)
[2023-03-26] MEDS ORDERED: PROPOFOL 10 MG/ML 20ML VIAL IV ONE ×2 (09:03→09:51)
[2023-03-26] MEDS ORDERED: CEFAZOLIN SODIUM 2 GM VIAL IVPB ONE (09:40)
[2023-03-26] MEDS ORDERED: ONDANSETRON 4MG INJ ONE (09:58)
[2023-03-26] MEDS ORDERED: HYDROMORPHONE 1 MG INJ ONE (10:14)
[2023-03-26] MEDS ORDERED: NEOSTIGMINE 5MG/5ML SYR IV ONE (11:38)
[2023-03-26] MEDS ORDERED: ONDANSETRON 4MG INJ IVP PRN (14:00)
[2023-03-26] MEDS ORDERED: ACETAMINOPHEN WITH CODEINE 1 TAB TAB PO PRN (14:00)
[2023-03-26] MEDS: MORPHINE 4 MG SYG IV PRN ×2 (17:58→22:05)
[2023-03-26] MEDS: SENNOSIDES 8.6 MG TABLET PO SCH (19:39)
[2023-03-26] MEDS: LEVETIRACETAM 250 MG TABLET PO SCH (19:40)
[2023-03-26] MEDS: DIVALPROEX SODIUM 250 MG TABLET.DR PO SCH (19:40)
[2023-03-26] MEDS: LACTATED RINGERS 1000ML 1,000 ML IV SCH (19:40)
[2023-03-26] MEDS ORDERED: QUETIAPINE FUMARATE 100 MG TAB PO SCH (21:00)
[2023-03-27 00:25] VITALS: BP 138/70
[2023-03-27] MEDS: LACTATED RINGERS 1000ML 1,000 ML IV SCH (02:17)
[2023-03-27] MEDS: MORPHINE 4 MG SYG IV PRN ×2 (02:24→09:40)
[2023-03-27 03:53] VITALS: BP 128/71
[2023-03-27 05:22] LABS: BASOPHILS % (AUTO) 0.2 % (0.0-5.0); EOSINOPHILS % (AUTO) 0.1 % (0.0-8.0); LYMPHOCYTES % (AUTO) 9.6 % (21.0-51.0); MEAN CORPUSCULAR HEMOGLOBIN 30.2 pg (27.0-33.0); MEAN CORPUSCULAR VOLUME 91.5 fL (79-99); NEUTROPHILS % (AUTO) 79.7 % (40.0-77.0); PLATELET COUNT (AUTO) 169 K/uL (130-400); RED BLOOD CELL COUNT(AUTO) 4.37 MIL/uL (4.50-6.20); RED CELL DISTRIBUTION WIDTH 13.7 % (11.0-15.5); WHITE BLOOD COUNT (AUTO) 10.3 K/uL (4.8-10.8)
[2023-03-27 05:37] LABS: CREATININE 0.7 mg/dL (0.5-1.5); POTASSIUM 3.9 mmol/L (3.5-5.1)
[2023-03-27 07:40] VITALS: BP 105/59
[2023-03-27] MEDS ORDERED: METOPROLOL SUCCINATE 25 MG TAB.SR.24H PO SCH (09:00)
[2023-03-27] MEDS ORDERED: PANTOPRAZOLE 40 MG TAB DR PO SCH (09:00)
[2023-03-27] MEDS ORDERED: QUETIAPINE FUMARATE 25 MG TAB PO SCH (09:00)
[2023-03-27] MEDS: LEVETIRACETAM 250 MG TABLET PO SCH (09:22)
[2023-03-27] MEDS: DIVALPROEX SODIUM 250 MG TABLET.DR PO SCH (09:23)
[2023-03-27] MEDS: SENNOSIDES 8.6 MG TABLET PO SCH (09:23)
[2023-03-27 11:46] VITALS: BP 114/78
[2023-03-27 15:10] VITALS: BP 113/71
== END 2023-03-27 18:40 | disposition home or self-care (01) ==
LOC: DAH 06:48 → DAHIP 06:49 → DAH 06:49 → 3DH 13:15
PROVIDERS: ADMIT Surgery; ATTEND Surgery
DX: D17.6 Benign lipomatous neoplasm of spermatic cord (principal); Z20.822 Contact with and (suspected) exposure to COVID-19; N49.1 Inflammatory disorders of spermatic cord, tunica vaginalis and vas deferens; I10 Essential (primary) hypertension; G40.909 Epilepsy, unspecified, not intractable, without status epilepticus; K40.91 Unilateral inguinal hernia, without obstruction or gangrene, recurrent; R40.20 Unspecified coma; Z86.73 Personal history of transient ischemic attack (TIA), and cerebral infarction without residual deficits; Z79.899 Other long term (current) drug therapy; Z98.890 Other specified postprocedural states
CPT/HCPCS: 85025 ×2; 85610; 85730; 87426; 36415 ×3; 54530; 96374; 96376 ×2; 96375; 84702; 82105; 88305; 80048; A6260; A4663; J3010 ×2; J1170; J3490 ×2; J2710; J7030; J2704 ×2; J2405 ×2; J2270 ×4; J0690 ×2; G0168; A4215; A4223; A4222; A4221; G0378 ×8

== ENCOUNTER → 2023-05-28 | Outpatient (CLI) | payer MEDICARE ==
[~2023-05-28] MED LIST changes: +LEVE750T35 PO; -LEVE750T66 PO
== END | disposition home or self-care (01) ==
LOC: WHH 09:43
PROVIDERS: ATTEND Nurse Practitioner Family
DX: L22 Diaper dermatitis (principal); I10 Essential (primary) hypertension; B35.4 Tinea corporis; E66.01 Morbid (severe) obesity due to excess calories; Z68.39 Body mass index [BMI] 39.0-39.9, adult; Z86.73 Personal history of transient ischemic attack (TIA), and cerebral infarction without residual deficits; Z87.891 Personal history of nicotine dependence; Z79.899 Other long term (current) drug therapy
CPT/HCPCS: G0463

== ENCOUNTER → 2023-06-12 | Outpatient (CLI) | payer MEDICARE | END | disposition home or self-care (01) | LOC: WHH 10:27 | PROVIDERS: ATTEND Nurse Practitioner Family | DX: L22 Diaper dermatitis (principal); I10 Essential (primary) hypertension; B35.4 Tinea corporis; E66.01 Morbid (severe) obesity due to excess calories; Z68.39 Body mass index [BMI] 39.0-39.9, adult; Z86.73 Personal history of transient ischemic attack (TIA), and cerebral infarction without residual deficits; Z87.891 Personal history of nicotine dependence; Z79.899 Other long term (current) drug therapy | CPT/HCPCS: G0463 ==

== ENCOUNTER → 2023-06-26 | Outpatient (CLI) | payer MEDICARE | END | disposition home or self-care (01) | LOC: WHH 10:10 | PROVIDERS: ATTEND Nurse Practitioner Family | DX: L22 Diaper dermatitis (principal); I10 Essential (primary) hypertension; B35.4 Tinea corporis; E66.01 Morbid (severe) obesity due to excess calories; Z68.39 Body mass index [BMI] 39.0-39.9, adult; Z86.73 Personal history of transient ischemic attack (TIA), and cerebral infarction without residual deficits; Z87.891 Personal history of nicotine dependence; Z79.899 Other long term (current) drug therapy | CPT/HCPCS: G0463 ==

== ENCOUNTER 2023-07-17 11:48 | Emergency (ER) | payer MEDICARE ==
[~2023-07-17] VITALS: Ht 167.6 cm; Wt 113.4 kg
[2023-07-17 13:05] LABS: RAPID GROUP A STREP negative (NEGATIVE)
[2023-07-17 13:12] LABS: INFLUENZA TYPE A Negative For Type A (NEGATIVE); INFLUENZA TYPE B Negative For Type B (NEGATIVE)
[2023-07-17 13:16] LABS: SARS-CoV-2, RNA, NAAT NEGATIVE SARS CoV-2 (NEGATIVE)
[2023-07-17] MEDS ORDERED: ACETAMINOPHEN 500 MG TABLET PO ONE (13:30)
[2023-07-17 13:57] LABS: APPEARANCE,URINE CLEAR (CLEAR); BILIRUBIN,URINE NEGATIVE (NEGATIVE); COLOR,URINE YELLOW (YELLOW); GLUCOSE, URINE (UA) NEGATIVE (NEGATIVE); KETONES,URINE NEGATIVE (NEGATIVE); LEUKOCYTE ESTERASE ,URINE NEGATIVE Leu/uL (NEGATIVE); NITRATE,URINE NEGATIVE (NEGATIVE); OCCULT BLOOD,URINE NEGATIVE (NEGATIVE); PH,URINE 7.5 (5.0-8.0); PROTEIN,URINE 30 mg/dL (NEGATIVE)
[2023-07-17 14:00] LABS: ADD UA MICROSCOPIC YES
[2023-07-17 14:02] LABS: MUCUS,URINE RARE LPF (None Seen); RBC,URINE 0-1 /HPF (0-1); WBC,URINE 0-1 /HPF (0-1)
[2023-07-17 14:02] LABS: BASOPHILS # (AUTO) 0.04 K/uL (0.00-0.20); BASOPHILS % (AUTO) 0.5 % (0.0-5.0); EOSINOPHILS # (AUTO) 0.06 K/uL (0.00-0.70); EOSINOPHILS % (AUTO) 0.7 % (0.0-8.0); HEMATOCRIT 44.2 % (42-54); IMMATURE GRANULOCYTE ABSOLUTE 0.04 K/uL (0-1); LYMPHOCYTES # (AUTO) 0.7 K/uL (1.0-4.8); LYMPHOCYTES % (AUTO) 8.3 % (21.0-51.0); MEAN CORPUSCULAR HEMOGLOBIN 29.7 pg (27.0-33.0); MEAN CORPUSCULAR HGB CONC 32.8 g/dL (32.0-36.0); MEAN CORPUSCULAR VOLUME 90.4 fL (79-99); MONOCYTES # (AUTO) 0.7 K/uL (0.1-1.0); MONOCYTES % (AUTO) 8.3 % (3.0-13.0); NEUTROPHILS # (AUTO) 7.3 K/uL (1.8-7.7); NEUTROPHILS % (AUTO) 81.7 % (40.0-77.0); PLATELET COUNT (AUTO) 163 K/uL (130-400); RED BLOOD CELL COUNT(AUTO) 4.89 MIL/uL (4.50-6.20); RED CELL DISTRIBUTION WIDTH 14.4 % (11.0-15.5); WHITE BLOOD COUNT (AUTO) 8.9 K/uL (4.8-10.8)
[2023-07-17 14:10] LABS: INR 0.94 (0.85-1.15); PROTHROMBIN TIME 10.9 SEC (9.6-11.6)
[2023-07-17 14:19] LABS: ALBUMIN 3.1 g/dL (3.5-5.0); BILIRUBIN,TOTAL 0.4 mg/dL (0.2-1.0); CREATININE 0.9 mg/dL (0.5-1.5); TOTAL PROTEIN, SERUM 7.6 g/dL (6.0-8.3)
[2023-07-17 16:04] VITALS: TEMP 98.6
[2023-07-17 16:14] VITALS: BP 148/78; PULSE 105; RESP 18; O2SAT 94
[2023-07-22] MEDS ORDERED: TIZA-194 PO (11:44)
[2023-07-22] MEDS ORDERED: METO25TA6 PO (11:44)
== END 2023-07-17 16:15 | disposition home or self-care (01) ==
LOC: EDH 11:48
DX: B34.9 Viral infection, unspecified (principal); R50.9 Fever, unspecified; I10 Essential (primary) hypertension; Z79.899 Other long term (current) drug therapy; Z20.822 Contact with and (suspected) exposure to COVID-19
CPT/HCPCS: 99284; 71045; 87635; 82550; 84484; 80053; 85025; 85610; 85730; 87040 ×2; 87088; 87880; 87804 ×2; 83605; 81001; 36415; C9803

== ENCOUNTER → 2023-08-16 | Outpatient (CLI) | payer MEDICARE ==
[~2023-08-16] MED LIST changes: +LEVO-70 PO; -METO-408 PO; +METO25TA6 PO; +TIZA-194 PO
== END | disposition home or self-care (01) ==
LOC: WHH 10:10
PROVIDERS: ATTEND Nurse Practitioner Family
DX: L22 Diaper dermatitis (principal); R21 Rash and other nonspecific skin eruption; I10 Essential (primary) hypertension; B35.4 Tinea corporis; E66.01 Morbid (severe) obesity due to excess calories; Z68.39 Body mass index [BMI] 39.0-39.9, adult; Z86.73 Personal history of transient ischemic attack (TIA), and cerebral infarction without residual deficits; Z87.891 Personal history of nicotine dependence; Z79.899 Other long term (current) drug therapy
CPT/HCPCS: G0463

== ENCOUNTER → 2023-09-13 | Outpatient (CLI) | payer MEDICARE | END | disposition home or self-care (01) | LOC: WHH 09:54 | PROVIDERS: ATTEND Nurse Practitioner Family | DX: L22 Diaper dermatitis (principal); R21 Rash and other nonspecific skin eruption; I10 Essential (primary) hypertension; B35.4 Tinea corporis; E66.01 Morbid (severe) obesity due to excess calories; E03.9 Hypothyroidism, unspecified; Z68.39 Body mass index [BMI] 39.0-39.9, adult; Z86.73 Personal history of transient ischemic attack (TIA), and cerebral infarction without residual deficits; Z87.891 Personal history of nicotine dependence; Z79.899 Other long term (current) drug therapy | CPT/HCPCS: G0463 ==

== ENCOUNTER → 2023-09-27 | Outpatient (CLI) | payer MEDICARE | END | disposition home or self-care (01) | LOC: WHH 10:08 | PROVIDERS: ATTEND Nurse Practitioner Family | DX: L22 Diaper dermatitis (principal); R21 Rash and other nonspecific skin eruption; I10 Essential (primary) hypertension; B35.4 Tinea corporis; E66.01 Morbid (severe) obesity due to excess calories; E03.9 Hypothyroidism, unspecified; Z68.39 Body mass index [BMI] 39.0-39.9, adult; Z86.73 Personal history of transient ischemic attack (TIA), and cerebral infarction without residual deficits; Z87.891 Personal history of nicotine dependence; Z79.899 Other long term (current) drug therapy | CPT/HCPCS: G0463 ==

== ENCOUNTER 2023-10-26 16:22 | Emergency (ER) | payer MEDICARE ==
[~2023-10-26] VITALS: Ht 170.2 cm; Wt 113.4 kg
[2023-10-26 17:21] LABS: BASOPHILS # (AUTO) 0.02 K/uL (0.00-0.20); BASOPHILS % (AUTO) 0.3 % (0.0-5.0); EOSINOPHILS # (AUTO) 0.01 K/uL (0.00-0.70); EOSINOPHILS % (AUTO) 0.2 % (0.0-8.0); IMMATURE GRANULOCYTE ABSOLUTE 0.08 K/uL (0-1); LYMPHOCYTES # (AUTO) 0.6 K/uL (1.0-4.8); LYMPHOCYTES % (AUTO) 9.4 % (21.0-51.0); MEAN CORPUSCULAR HEMOGLOBIN 30.3 pg (27.0-33.0); MEAN CORPUSCULAR HGB CONC 33.2 g/dL (32.0-36.0); MEAN CORPUSCULAR VOLUME 91.3 fL (79-99); MONOCYTES # (AUTO) 0.4 K/uL (0.1-1.0); MONOCYTES % (AUTO) 6.5 % (3.0-13.0); NEUTROPHILS # (AUTO) 4.9 K/uL (1.8-7.7); NEUTROPHILS % (AUTO) 82.3 % (40.0-77.0); PLATELET COUNT (AUTO) 174 K/uL (130-400); RED BLOOD CELL COUNT(AUTO) 4.82 MIL/uL (4.50-6.20); RED CELL DISTRIBUTION WIDTH 14.6 % (11.0-15.5)
[2023-10-26 17:26] LABS: APPEARANCE,URINE CLEAR (CLEAR); BILIRUBIN,URINE NEGATIVE (NEGATIVE); COLOR,URINE YELLOW (YELLOW); GLUCOSE, URINE (UA) NEGATIVE (NEGATIVE); KETONES,URINE 5 mg/dL (NEGATIVE); LEUKOCYTE ESTERASE ,URINE NEGATIVE Leu/uL (NEGATIVE); NITRATE,URINE NEGATIVE (NEGATIVE); OCCULT BLOOD,URINE NEGATIVE (NEGATIVE); PROTEIN,URINE 50 mg/dL (NEGATIVE); UROBILINOGEN,URINE 0.2 mg/dL (0.2-1.0)
[2023-10-26 17:31] LABS: ADD UA MICROSCOPIC YES
[2023-10-26 17:33] LABS: BACTERIA,URINE RARE /HPF (None Seen); MUCUS,URINE MOD LPF (None Seen); SQUAMOUS EPITHELIAL CELL,UR RARE /HPF (0-2)
[2023-10-26 17:36] LABS: SARS-CoV-2, RNA, NAAT NEGATIVE SARS CoV-2 (NEGATIVE)
[2023-10-26 17:40] LABS: INFLUENZA TYPE B Negative For Type B (NEGATIVE)
[2023-10-26 17:49] LABS: INFLUENZA TYPE A Positive For Type A (NEGATIVE)
[2023-10-26 18:09] LABS: CREATININE 1.5 mg/dL (0.5-1.5); POTASSIUM 4.1 mmol/L (3.5-5.1)
[2023-10-26 18:14] LABS: ALBUMIN 2.8 g/dL (3.5-5.0); BILIRUBIN,TOTAL 0.3 mg/dL (0.2-1.0); TOTAL PROTEIN, SERUM 7.4 g/dL (6.0-8.3)
[2023-10-26] MEDS ORDERED: OSEL75 PO (18:24)
[2023-10-26] MEDS ORDERED: 0.9%NACL 1000ML 1,000 ML IV ONE (18:30)
[2023-10-26] MEDS ORDERED: OSELTAMIVIR PHOSPHATE 75 MG CAP PO ONE (18:30)
[2023-10-26 18:47] VITALS: BP 114/79; PULSE 98; RESP 20; O2SAT 94
== END 2023-10-26 19:01 | disposition home or self-care (01) ==
LOC: EDH 16:22
DX: J11.1 Influenza due to unidentified influenza virus with other respiratory manifestations (principal); B34.9 Viral infection, unspecified; I10 Essential (primary) hypertension; Z79.899 Other long term (current) drug therapy; Z20.822 Contact with and (suspected) exposure to COVID-19
CPT/HCPCS: 99285; 71045; 87635; 83735; 84484; 80053; 85025; 87040 ×2; 87804 ×2; 83605; 81001; 36415; 93005 ×2; C9803; J7030

== ENCOUNTER 2024-03-17 13:36 | Emergency (ER) | payer MEDICARE, OTHER ==
[~2024-03-17] VITALS: Ht 167.6 cm; Wt 113.4 kg
[~2024-03-17 13:36] MED LIST changes: -LACT20PA6 PO
[2024-03-17 14:45] LABS: BASOPHILS # (AUTO) 0.04 K/uL (0.00-0.20); BASOPHILS % (AUTO) 0.4 % (0.0-5.0); EOSINOPHILS # (AUTO) 0.14 K/uL (0.00-0.70); EOSINOPHILS % (AUTO) 1.5 % (0.0-8.0); IMMATURE GRANULOCYTE ABSOLUTE 0.05 K/uL (0-1); LYMPHOCYTES # (AUTO) 1.9 K/uL (1.0-4.8); LYMPHOCYTES % (AUTO) 20.5 % (21.0-51.0); MEAN CORPUSCULAR HEMOGLOBIN 30.3 pg (27.0-33.0); MEAN CORPUSCULAR HGB CONC 33.9 g/dL (32.0-36.0); MEAN CORPUSCULAR VOLUME 89.6 fL (79-99); MONOCYTES # (AUTO) 0.6 K/uL (0.1-1.0); MONOCYTES % (AUTO) 6.8 % (3.0-13.0); NEUTROPHILS # (AUTO) 6.5 K/uL (1.8-7.7); NEUTROPHILS % (AUTO) 70.3 % (40.0-77.0); PLATELET COUNT (AUTO) 232 K/uL (130-400); RED BLOOD CELL COUNT(AUTO) 4.91 MIL/uL (4.50-6.20); RED CELL DISTRIBUTION WIDTH 13.5 % (11.0-15.5); WHITE BLOOD COUNT (AUTO) 9.3 K/uL (4.8-10.8)
[2024-03-17 14:56] LABS: CREATININE 0.8 mg/dL (0.5-1.3); POTASSIUM 3.9 mmol/L (3.5-5.1)
[2024-03-17 15:01] LABS: ALBUMIN 2.9 g/dL (3.5-5.0); BILIRUBIN,TOTAL 0.2 mg/dL (0.2-1.0)
[2024-03-17] MEDS: 0.9%NACL 1000ML 2,000 ML IV ONE (15:43)
[2024-03-17 15:57] LABS: ADD UA MICROSCOPIC YES; APPEARANCE,URINE CLEAR (CLEAR); BILIRUBIN,URINE NEGATIVE (NEGATIVE); COLOR,URINE LIGHT-YELLOW (YELLOW); GLUCOSE, URINE (UA) NEGATIVE (NEGATIVE); KETONES,URINE NEGATIVE (NEGATIVE); LEUKOCYTE ESTERASE ,URINE NEGATIVE Leu/uL (NEGATIVE); NITRATE,URINE NEGATIVE (NEGATIVE); OCCULT BLOOD,URINE NEGATIVE (NEGATIVE); PROTEIN,URINE 10 mg/dL (NEGATIVE); UROBILINOGEN,URINE 0.2 mg/dL (0.2-1.0)
[2024-03-17 16:02] LABS: BACTERIA,URINE RARE /HPF (None Seen); MUCUS,URINE RARE LPF (None Seen); SQUAMOUS EPITHELIAL CELL,UR RARE /HPF (0-2)
[2024-03-17] MEDS ORDERED: LACT20PA6 PO (16:46)
[2024-03-17 17:58] VITALS: BP 175/96; PULSE 106; RESP 16; O2SAT 96
== END 2024-03-17 18:43 | disposition home or self-care (01) ==
LOC: EDH 13:36
DX: K59.00 Constipation, unspecified (principal); I10 Essential (primary) hypertension; Z79.899 Other long term (current) drug therapy; Z86.73 Personal history of transient ischemic attack (TIA), and cerebral infarction without residual deficits
CPT/HCPCS: 99284; 74176; 96360; 96361; 84484; 80053; 83690; 85025; 83605 ×2; 81001; 36415; 93005; J7030

== ENCOUNTER → 2024-03-17 | Outpatient (CLI) | payer OTHER ==
[~2024-03-17] MED LIST changes: +LACT20PA6 PO; +OSEL75 PO
[2024-03-17 10:19] LABS: BASOPHILS # (AUTO) 0.02 K/uL (0.00-0.20); BASOPHILS % (AUTO) 0.3 % (0.0-5.0); EOSINOPHILS # (AUTO) 0.27 K/uL (0.00-0.70); EOSINOPHILS % (AUTO) 3.8 % (0.0-8.0); IMMATURE GRANULOCYTE ABSOLUTE 0.04 K/uL (0-1); LYMPHOCYTES # (AUTO) 2.1 K/uL (1.0-4.8); LYMPHOCYTES % (AUTO) 29.5 % (21.0-51.0); MEAN CORPUSCULAR HEMOGLOBIN 30.1 pg (27.0-33.0); MEAN CORPUSCULAR HGB CONC 32.8 g/dL (32.0-36.0); MEAN CORPUSCULAR VOLUME 91.8 fL (79-99); MONOCYTES # (AUTO) 0.5 K/uL (0.1-1.0); MONOCYTES % (AUTO) 6.4 % (3.0-13.0); NEUTROPHILS # (AUTO) 4.2 K/uL (1.8-7.7); NEUTROPHILS % (AUTO) 59.4 % (40.0-77.0); PLATELET COUNT (AUTO) 222 K/uL (130-400); RED BLOOD CELL COUNT(AUTO) 5.01 MIL/uL (4.50-6.20); RED CELL DISTRIBUTION WIDTH 13.7 % (11.0-15.5); WHITE BLOOD COUNT (AUTO) 7.1 K/uL (4.8-10.8)
[2024-03-17 10:29] LABS: INR <= 0.93 (0.85-1.15); PROTHROMBIN TIME 10.4 SEC (9.6-11.6)
[2024-03-17 10:33] LABS: ALBUMIN 3.1 g/dL (3.5-5.0); BILIRUBIN,TOTAL 0.2 mg/dL (0.2-1.0); CREATININE 0.9 mg/dL (0.5-1.3); POTASSIUM 4.1 mmol/L (3.5-5.1); TOTAL PROTEIN, SERUM 8.3 g/dL (6.0-8.3)
== END | disposition home or self-care (01) ==
LOC: LAB 09:44
PROVIDERS: ATTEND Family Medicine Adult Medicine
DX: Z01.818 Encounter for other preprocedural examination (principal); I44.4 Left anterior fascicular block; R00.0 Tachycardia, unspecified; I21.9 Acute myocardial infarction, unspecified
CPT/HCPCS: 36415; 71045; 80053; 85025; 85610; 93005

== ENCOUNTER 2024-03-28 17:20 | Emergency (ER) | payer MEDICARE ==
[~2024-03-28] VITALS: Ht 170.2 cm; Wt 113.4 kg
[~2024-03-28 17:20] MED LIST changes: +LACT20PA6 PO; -LEVO-70 PO; -OSEL75 PO
[2024-03-28 17:21] VITALS: BP 156/96; PULSE 122; RESP 22
[2024-03-28 17:59] LABS: BASOPHILS # (AUTO) 0.04 K/uL (0.00-0.20); BASOPHILS % (AUTO) 0.4 % (0.0-5.0); EOSINOPHILS % (AUTO) 2.1 % (0.0-8.0); HEMATOCRIT 47.1 % (42-54); LYMPHOCYTES % (AUTO) 21.1 % (21.0-51.0); MEAN CORPUSCULAR HEMOGLOBIN 30.7 pg (27.0-33.0); MEAN CORPUSCULAR HGB CONC 33.3 g/dL (32.0-36.0); MONOCYTES # (AUTO) 0.7 K/uL (0.1-1.0); MONOCYTES % (AUTO) 7.3 % (3.0-13.0); NEUTROPHILS # (AUTO) 6.4 K/uL (1.8-7.7); PLATELET COUNT (AUTO) 268 K/uL (130-400); RED BLOOD CELL COUNT(AUTO) 5.12 MIL/uL (4.50-6.20); RED CELL DISTRIBUTION WIDTH 13.5 % (11.0-15.5); WHITE BLOOD COUNT (AUTO) 9.5 K/uL (4.8-10.8)
[2024-03-28] MEDS ORDERED: 0.9%NACL 1000ML 1,000 ML IV ONE (18:00)
[2024-03-28 18:14] LABS: POTASSIUM 3.8 mmol/L (3.5-5.1)
[2024-03-28 18:19] LABS: ALBUMIN 3.1 g/dL (3.5-5.0); BILIRUBIN,TOTAL 0.2 mg/dL (0.2-1.0); TOTAL PROTEIN, SERUM 8.1 g/dL (6.0-8.3)
== END 2024-03-28 20:09 | disposition left against medical advice (07) ==
LOC: EDH 17:20
DX: R10.9 Unspecified abdominal pain (principal); I10 Essential (primary) hypertension; Z79.899 Other long term (current) drug therapy; Z86.73 Personal history of transient ischemic attack (TIA), and cerebral infarction without residual deficits
CPT/HCPCS: 36415; 80053; 83690; 85025

== ENCOUNTER 2024-04-17 09:17 | Emergency (ER) | payer MEDICARE ==
[~2024-04-17] VITALS: Ht 167.6 cm; Wt 113.4 kg
[2024-04-17] MEDS: MORPHINE 4 MG SYG IVP ONE (09:57)
[2024-04-17 09:58] LABS: BASOPHILS # (AUTO) 0.03 K/uL (0.00-0.20); BASOPHILS % (AUTO) 0.4 % (0.0-5.0); EOSINOPHILS % (AUTO) 3.9 % (0.0-8.0); HEMATOCRIT 46.2 % (42-54); IMMATURE GRANULOCYTE ABSOLUTE 0.05 K/uL (0-1); LYMPHOCYTES # (AUTO) 2.9 K/uL (1.0-4.8); LYMPHOCYTES % (AUTO) 36.8 % (21.0-51.0); MEAN CORPUSCULAR HEMOGLOBIN 30.2 pg (27.0-33.0); MEAN CORPUSCULAR HGB CONC 32.7 g/dL (32.0-36.0); MEAN CORPUSCULAR VOLUME 92.4 fL (79-99); MONOCYTES # (AUTO) 0.6 K/uL (0.1-1.0); MONOCYTES % (AUTO) 7.3 % (3.0-13.0); PLATELET COUNT (AUTO) 222 K/uL (130-400); RED CELL DISTRIBUTION WIDTH 14.4 % (11.0-15.5); WHITE BLOOD COUNT (AUTO) 7.8 K/uL (4.8-10.8)
[2024-04-17 10:09] LABS: ALBUMIN 3.2 g/dL (3.5-5.0); BILIRUBIN,TOTAL 0.3 mg/dL (0.2-1.0); TOTAL PROTEIN, SERUM 8.2 g/dL (6.0-8.3)
[2024-04-17 10:20] LABS: ADD UA MICROSCOPIC YES; APPEARANCE,URINE CLEAR (CLEAR); BILIRUBIN,URINE NEGATIVE (NEGATIVE); COLOR,URINE YELLOW (YELLOW); GLUCOSE, URINE (UA) NEGATIVE (NEGATIVE); KETONES,URINE NEGATIVE (NEGATIVE); LEUKOCYTE ESTERASE ,URINE NEGATIVE Leu/uL (NEGATIVE); NITRATE,URINE NEGATIVE (NEGATIVE); OCCULT BLOOD,URINE NEGATIVE (NEGATIVE); PH,URINE 5.5 (5.0-8.0); PROTEIN,URINE 10 mg/dL (NEGATIVE); UROBILINOGEN,URINE 0.2 mg/dL (0.2-1.0)
[2024-04-17 10:26] LABS: MUCUS,URINE RARE LPF (None Seen); SQUAMOUS EPITHELIAL CELL,UR RARE /HPF (0-2)
[2024-04-17] MEDS: KETOROLAC 60 MG VIAL (30MG/ML) IM ONE (11:59)
[2024-04-17 12:14] VITALS: BP 141/88; PULSE 99; RESP 18; O2SAT 94
== END 2024-04-17 12:47 | disposition home or self-care (01) ==
LOC: EDH 09:17
DX: R14.0 Abdominal distension (gaseous) (principal); M54.9 Dorsalgia, unspecified; I10 Essential (primary) hypertension; Z79.899 Other long term (current) drug therapy; Z98.890 Other specified postprocedural states
CPT/HCPCS: 99285; 74176; 96374; 80053; 83690; 85025; 81001; 36415; 96372; J2270; J1885; 96375

== ENCOUNTER → 2024-07-31 | Outpatient (CLI) | payer MEDICARE | END | disposition home or self-care (01) | LOC: WHH 08:58 | PROVIDERS: ATTEND Family Medicine | DX: L89.302 Pressure ulcer of unspecified buttock, stage 2 (principal); L22 Diaper dermatitis; I10 Essential (primary) hypertension; E66.01 Morbid (severe) obesity due to excess calories; Z68.41 Body mass index [BMI] 40.0-44.9, adult; Z87.891 Personal history of nicotine dependence | CPT/HCPCS: G0463 ==